=== PATIENT | female | born 1980 | race African-American/Black ===

== ENCOUNTER 2023-11-23 09:15 | Emergency (ER) | payer MEDICAID, OTHER ==
[~2023-11-23] VITALS: Ht 152.4 cm; Wt 81.0 kg
[2023-11-23 10:11] VITALS: O2SAT 97
[2023-11-23] MEDS: HYDROCODONE/ACETAMINOPHEN 5/325MG TABLET PO STA (12:09)
[2023-11-23] MEDS: ONDANSETRON 4MG ODT PO STA (12:09)
[2023-11-23 12:18] LABS: BASOPHILS % 0.7 % (0.0-2.0); DIFFERENTIAL COMMENT 0; EOSINOPHILS % 0.4 % (0.0-5.0); HEMATOCRIT. 43.3 % (36.0-48.0); HEMOGLOBIN. 13.3 g/dL (12.0-16.0); LYMPHOCYTES % 15.8 % (20.0-50.0); MEAN CORPUSCULAR HEMOGLOBIN 21.7 pg (28.0-32.0); MEAN CORPUSCULAR HGB CONC 30.8 g/dL (31.0-37.0); MEAN CORPUSCULAR VOLUME 70.5 fL (81.0-99.0); MEAN PLATELET VOLUME 9.7 fl (7.4-10.4); MONOCYTES % 7.6 % (2.0-8.0); NEUTROPHILS % 75.5 % (40.0-76.0); PLATELET 330 x1000/uL (130-400); RED BLOOD CELL COUNT 6.14 mill/uL (4.2-5.4); RED CELL DISTRIBUTION WIDTH 16.1 % (11.6-14.6); WHITE BLOOD COUNT 12.5 x1000/uL (4.5-11.0)
[2023-11-23 12:28] LABS: PROTHROMBIN TIME 11.4 sec (9.6-11.0)
[2023-11-23 12:38] LABS: ALANINE AMINOTRANSFERASE < 7 IU/L (10-49); ALBUMIN 4.9 g/dL (3.2-4.8); ASPARTATE AMINOTRANSFERASE 13 IU/L (<34); BILIRUBIN TOTAL 1.2 mg/dL (0.1-1.0); CARBON DIOXIDE 22 mEq/L (21-32); CHLORIDE 106 mEq/L (98-107); CREATININE 0.9 mg/dL (0.6-1.0); GLUCOSE 121 mg/dL (70-105); POTASSIUM 3.7 mEq/L (3.5-5.1); PROTEIN TOTAL 8.6 g/dL (6.0-8.3); SODIUM 137 mEq/L (136-145); UREA NITROGEN BLOOD 9 mg/dL (9-23)
[2023-11-23 12:50] LABS: HCG SCREEN NEGATIVE
[2023-11-23 12:56] LABS: CLARITY URINE CLEAR (CLEAR); COLOR URINE DARK YELLOW (YELLOW); GLUCOSE URINE NEGATIVE (NEGATIVE); KETONES URINE 2+ (NEGATIVE); LEUKOCYTE ESTERASE URINE NEGATIVE (NEGATIVE); NITRITE URINE NEGATIVE (NEGATIVE); OCCULT BLOOD URINE NEGATIVE (NEGATIVE); PH URINE 5.5 (4.5-8.0); PROTEIN URINE TRACE (NEGATIVE); SPECIFIC GRAVITY URINE 1.029 (1.005-1.030)
[2023-11-23 13:24] LABS: BACTERIA URINE TRACE; RBC URINE 0-2 /hpf (0-2); SQUAMOUS EPITHELIAL CELL URINE 2+ /lpf (RARE/1+); YEAST URINE NONE SEEN
[2023-11-23 14:15] VITALS: BP 121/64; PULSE 65; RESP 18
[2023-11-23] MEDS ORDERED: NAPR500T7 MT (14:24)
[2023-11-23] MEDS ORDERED: NAPROXEN 375MG TABLET PO ONE (14:30)
[2023-11-23] MEDS: NAPROXEN 500MG TABLET PO NR (14:45)
== END 2023-11-23 14:43 | disposition home or self-care (01) ==
LOC: ER 09:33
DX: R10.819 Abdominal tenderness, unspecified site (principal); J45.909 Unspecified asthma, uncomplicated
CPT/HCPCS: 80053; 81003; 84703; 83690; 85025; 85610; 36415; 74176; 99284; Q0162; Z7610 ×2